=== PATIENT | female | born 1945 | race Caucasian/White ===

== ENCOUNTER 2017-02-12 23:32 | Emergency (ER) | payer MEDICARE ==
[~2017-02-12] VITALS: Ht 160 cm; Wt 81.8 kg
[2017-02-12 23:36] VITALS: BP 139/79; PULSE 85; RESP 16; O2SAT 94
--- NOTE | 2017-02-13 00:27 | ED.REPORT ---
HPI-Extremity Problem Upper Date of Service Feb 13, 2017 ED Provider: Dr. Suarez Pt is an otherwise healthy 71 year old female who presents to the ED after cutting her finger on a carving knife while washing dishes in soapy water prior to arrival. She c/o throbbing, and numbness at the tip. Her last tetanus shot was within the last 10 years. Nursing Notes Stated Complaint: RIGHT FINGER LACERATION Chief Complaint: Extremity Trauma Nursing Notes Reviewed: Yes Allergies: Uncoded Allergies: SULFA (Allergy, Intermediate, SEVERE HIVES, 02/12/17) General Time Seen by MD: 00:27 Chief Complaint Finger injury right 2 Hx Obtained From: Patient Arrived By: Walk-in Onset Occurred: Just prior to arrival Symptom Duration: Since onset Location: : Finger right 2 Quality: Painful Severity: Current: Moderate Severity: Maximum: Moderate Immunizations: Tetanus w/in 5 - 10 yrs Recent Healthcare: No recent doctor visit, No recent hospitalization Similar Sx Previous: No Past Medical History Past Medical History Denies: Congestive heart failure, Diabetes mellitus Past Surgical History Denies Smoking History Unknown if Ever Smoker Social History Alcohol Use: Denies alcohol use Drug Use: Denies drug use Ambulatory Status Independent Review of Systems + Right index finger laceration Basic Review of Systems Eyes: Vision NL ENT: Hearing NL Musculoskeletal: Reports: Extremity pain Complete sys rev & neg: except as marked. Respiratory: Denies: Non-productive cough, Shortness of breath Physical Exam Initial Vital Signs Vital Signs (First) Date Time Temp Pulse Resp B/P Pulse Ox O2 Delivery O2 Flow Rate FiO2 02/12/17 23:36 36.6 85 16 139/79 94 Room Air Initial VS: Reviewed Head / Eyes: Atraumatic, Normocephalic, PERRL ENT: Mucous membranes moist, Conjunctiva normal, No scleral icterus Neck: Supple, Full range of motion Respiratory: Breath sounds normal, Clear to auscultation, No respiratory distress Cardiovascular: Regular rate & rhythm, Heart sounds normal, Intact distal pulses Abdomen / GI: Soft, Non-tender Lower Extremities: Vascular intact, Neuro intact Skin: Warm, Dry, No cyanosis Neurologic: Alert, Oriented, Nonfocal Psychiatric: Mood/affect normal, Behavior normal General/Constitutional: Awake, Alert, Cooperative, Not toxic appearing Wrist / Hand: Neurologic intact, Vascular intact 2.5 cm laceration on right index finger near nail bed with decreased sensation at the tip Procedures Laceration Management Time: 00:46 Procedure Performed by: ED physician Consent / Setup / Site Prep: Consent from patient, Time-out performed, Hand hygiene observed, Stand sterile technique Wound Length: 2 cm (2.5 cm) Local Anesthesia: Lidocaine 1% Digital Block: No Wound Preparation: Hibiclens - Chlorhexidine, Other (High pressure saline) Debridement: None Irrigation: 250 cc Repair Skin: ___ O (5), Nylon # Sutures - Skin: 4 Suture Technique: Simple Post-Procedure / Complications: Antibiotic oint applied, Dressing applied, No complications, Condition improved, Tolerated procedure well, Patient stable Re-Eval/Medical Decision Med Decision/Clinical Course 71-year-old with a 2.5 cm distal flap laceration on her finger just along the nail margin. This is approximated as detailed above, with horizontal mattress sutures along the margin to avoid compromising the distal blood supply, and two simple sutures to the tip of the flap to approximated. The margin along the nail edge was left on closed as it could not be distracted open after the tips were approximated. Bacitracin dressing and follow-up for suture removal or weak. Source of Hx: Old records Re-Evaluation/Progress : Time of Eval: 00:57 Patient Status: Condition improved Re-Evaluation/Progress Note: Pt rechecked. Finger laceration management was conducted. Informed pt of plan for discharge. Pt understands and agrees with plan for discharge. F/U instructions and RTER warnings given. All questions addressed. Counseled Regarding: Diagnosis, Need for follow-up, When/why to return to ED Discharge & Departure Impression: Primary Impression: Laceration of finger Encounter type: initial encounter Qualified Code: S61.219A - Laceration without foreign body of unspecified finger without damage to nail, initial encounter Disposition: Home Discharge Condition All VS Reviewed: Yes Condition: Stable Patient Instructions: Finger Laceration (ED) Additional Instructions: Wash and then apply bacitracin dressing three times daily. Return in a week for suture removal here. Follow up with your doctor in the office. Return here for any signs of infection or other new issues. Referrals: Radha Moreau (PCP) Scribe Attestation Portions of this note were transcribed by Sherice Noel. I, Dr. Suarez personally performed the history, physical exam and medical decision-making; I reviewed and confirmed the accuracy of the information in the transcribed note. Signed by: Jermaine Clark, 02/13/17 and 01:15 copies to: Radha Moreau Christopher W MD Feb 13, 2017 00:27 Sherice Acevedo Feb 13, 2017 00:31
[2017-02-13] MEDS ORDERED: TdaP Vaccine 0.5 mL Inj IM ONE (01:00)
[2017-02-13 01:14] VITALS: BP 130/72; PULSE 80; RESP 16; O2SAT 96
== END 2017-02-13 01:15 | disposition home or self-care (01) ==
LOC: SED 23:32
DX: S61.210A Laceration without foreign body of right index finger without damage to nail, initial encounter (principal); W26.0XXA Contact with knife, initial encounter; Y93.G1 Activity, food preparation and clean up; Y92.9 Unspecified place or not applicable; Y99.8 Other external cause status; Z23 Encounter for immunization

== ENCOUNTER 2017-02-21 10:20 | Emergency (ER) | payer MEDICARE ==
[2017-02-21 10:39] VITALS: BP 145/76; PULSE 73; RESP 15
== END 2017-02-21 10:45 | disposition home or self-care (01) ==
LOC: SED 10:20
DX: Z48.02 Encounter for removal of sutures (principal)